=== PATIENT | female | born 1990 | race Caucasian/White ===

== ENCOUNTER → 2018-01-13 | Outpatient (REF) | payer OTHER ==
[2018-01-13 20:07] LABS: CHLAMYDIA DNA AMPLIFICATION NEGATIVE (NEGATIVE); GC DNA AMPLIFICATION NEGATIVE (NEGATIVE)
== END ==
LOC: M SFHCLERA 15:48
DX: N89.8 Other specified noninflammatory disorders of vagina (principal); R30.0 Dysuria

== ENCOUNTER 2018-02-11 11:58 | Emergency (ER) | payer OTHER ==
[~2018-02-11] VITALS: Ht 160 cm; Wt 77.3 kg
[2018-02-11] MEDS ORDERED: METO5TAB2 (12:04)
[2018-02-11] MEDS ORDERED: ONDANSETRON 4MG/2ML VIAL (J2405) IV ONE (12:30)
[2018-02-11] MEDS ORDERED: NS 1,000 ML IV ONE (12:30)
[2018-02-11] MEDS ORDERED: ZOFR4TAB14 PO (14:00)
[2018-02-11] MEDS ORDERED: MACR100C43 PO (14:05)
[2018-02-11 14:08] VITALS: BP 107/60
== END 2018-02-11 14:10 | disposition home or self-care (01) ==
LOC: M ED 11:58
DX: N39.0 Urinary tract infection, site not specified (principal); R11.2 Nausea with vomiting, unspecified
CPT/HCPCS: 81001; 87086; 96361; 96374; 99284; J2405

== ENCOUNTER → 2018-03-04 | Outpatient (CLI) | payer OTHER ==
[~2018-03-04] MED LIST: MACR100C43 PO; METO5TAB2; PHEN1SUP10; PROM25TA12 PO; ZOFR4TAB14 PO
[2018-03-04 18:25] LABS: BASO % 0.3 % (0.0-1.0); EOS # 0.1 10^3/uL (0.0-0.50); EOS % 0.9 % (0.0-3.0); HEMATOCRIT 40.3 % (36.0-47.0); HEMOGLOBIN 12.5 g/dl (12.0-15.5); LYMPH # 2.1 10^3/uL (1.5-6.5); LYMPH % 26.3 % (24.0-44.0); MEAN CORPUSCULAR HEMOGLOBIN 25.7 pg (27.0-33.0); MEAN CORPUSCULAR VOLUME 82.9 fl (80.0-96.0); MONO # 0.6 10^3/uL (0.0-0.8); MONO % 7.1 % (0.0-5.0); NEUTROPHILS # 5.2 10^3/uL (1.8-7.7); NEUTROPHILS % 65.1 % (36.0-66.0); PLATELET COUNT, AUTOMATED 262 10^3/uL (150-450); RED BLOOD COUNT 4.86 10^6/uL (4.00-5.40); WHITE BLOOD COUNT 7.9 10^3/uL (4.0-10.0)
[2018-03-04 20:04] LABS: CHLAMYDIA DNA AMPLIFICATION NEGATIVE (NEGATIVE); GC DNA AMPLIFICATION NEGATIVE (NEGATIVE)
[2018-03-06 11:17] LABS: HEPATITIS C VIRUS ABY INDEX 0.1 INDEX (<0.8); HIV 1&2 SCREEN CENTAUR NEGATIVE (NEGATIVE); RUBELLA IgG QUALITATIVE IMMUNE (IMMUNE)
== END ==
LOC: M SMT 14:05
PROVIDERS: ATTEND Advanced Practice Midwife
DX: Z34.80 Encounter for supervision of other normal pregnancy, unspecified trimester (principal); Z3A.10 10 weeks gestation of pregnancy

== ENCOUNTER 2018-03-07 15:55 | Emergency (ER) | payer OTHER ==
[~2018-03-07] VITALS: Ht 162.6 cm; Wt 73.0 kg
[~2018-03-07 15:55] MED LIST changes: -PHEN1SUP10; -PROM25TA12 PO
[2018-03-07] MEDS ORDERED: PHEN1SUP10 (16:01)
[2018-03-07 16:54] LABS: BLOOD UREA NITROGEN 5 MG/DL (7-18); CALCIUM LEVEL 9.1 MG/DL (8.5-10.1); CARBON DIOXIDE LEVEL 22 MEQ/L (21-32); CHLORIDE LEVEL 103 MEQ/L (98-107); CREATININE FOR GFR 0.55 MG/DL (0.55-1.30); GLOMERULAR FILTRATION RATE > 60.0 (>60); GLUCOSE, FASTING 74 MG/DL (70-100); POTASSIUM SERUM 3.9 MEQ/L (3.5-5.1); SODIUM LEVEL 134 MEQ/L (136-145)
[2018-03-07 16:56] LABS: BASO % 0.1 % (0.0-1.0); EOS % 0.5 % (0.0-3.0); HEMATOCRIT 40.3 % (36.0-47.0); HEMOGLOBIN 13.1 g/dl (12.0-15.5); LYMPH # 1.6 10^3/uL (1.5-6.5); LYMPH % 21.5 % (24.0-44.0); MEAN CORPUSCULAR HEMOGLOBIN 26.6 pg (27.0-33.0); MEAN CORPUSCULAR HGB CONC 32.5 g/dl (32.0-36.5); MEAN CORPUSCULAR VOLUME 81.7 fl (80.0-96.0); MONO # 0.4 10^3/uL (0.0-0.8); MONO % 5.7 % (0.0-5.0); NEUTROPHILS # 5.3 10^3/uL (1.8-7.7); NEUTROPHILS % 71.8 % (36.0-66.0); PLATELET COUNT, AUTOMATED 249 10^3/uL (150-450); RED BLOOD COUNT 4.93 10^6/uL (4.00-5.40); WHITE BLOOD COUNT 7.4 10^3/uL (4.0-10.0)
[2018-03-07] MEDS ORDERED: PROMETHAZINE 25 MG TAB PO ONE (17:00)
[2018-03-07] MEDS ORDERED: NS 1,000 ML IV ONE (17:45)
[2018-03-07] MEDS ORDERED: METOCLOPRAMIDE INJ 10MG/2ML VIAL (J2765) IV ONE (18:30)
[2018-03-07] MEDS ORDERED: ONDANSETRON 4MG/2ML VIAL (J2405) IV ONE (19:15)
[2018-03-07 20:10] VITALS: BP 120/72
[2018-03-07] MEDS ORDERED: PROM25TA12 PO (20:16)
== END 2018-03-07 20:19 | disposition home or self-care (01) ==
LOC: M ED 15:55
DX: R11.2 Nausea with vomiting, unspecified (principal); Z79.899 Other long term (current) drug therapy
CPT/HCPCS: 80048; 81001; 85025; 87086; 96374; 96375; 99284; J2405; J2765

== ENCOUNTER → 2018-04-03 | Outpatient (CLI) | payer OTHER ==
[~2018-04-03] MED LIST changes: +PHEN1SUP10; +PROM25TA12 PO
== END ==
LOC: M SMT 13:42
PROVIDERS: ATTEND Advanced Practice Midwife
DX: Z34.82 Encounter for supervision of other normal pregnancy, second trimester (principal); Z36.8A Encounter for antenatal screening for other genetic defects

== ENCOUNTER → 2018-05-06 | Outpatient (CLI) | payer OTHER ==
--- NOTE | 2018-05-07 05:33 | REP ---
Clinical: Anatomical evaluation. Comparison: None . Findings: Examination demonstrates a single live intrauterine in cephalic presentation. motion is identified by technologist. Placenta is noted anterior and grade grade zero without evidence for placenta previa or abruption. Amniotic fluid volume is normal. Cervix measures 4.1 cm in length and appears closed. No evidence for nuchal cord. Gestational age by LMP 18 weeks 1 day with SMOOTH 10/06/2018 . Gestational age by current measurements 19 weeks 3 days with SMOOTH 09/27/2018 . FHR equals 150 beats per minute. BPD 4.8 cm 20 weeks 4 days HC 16.5 cm 19 weeks 2 days AC 13.2 cm 18 weeks 5 days FL 2.9 cm 18 weeks 6 days HL 2.9 cm 19 weeks 3 days HC/AC ratio 1.25 Estimated weight 263 grams ( 79th percentile). Anatomical assessment demonstrates normal structures including cranium, choroid plexus, cavum, cerebellum/posterior fossa, facial features, lungs, diaphragm, stomach, cord insertion/three-vessel cord, kidneys/bladder, spine, and extremities. Limited evaluation of the heart and ventricular outflow tracts noted. Too small echogenic foci within the left cardiac ventral cannot be excluded. Impression: 1. Single live intrauterine in cephalic presentation demonstrating appropriate interval growth. 2. Incomplete evaluation of the heart and ventricular outflow tracts warrant reevaluation. Electronically Signed by Michael Fair MD 05/07/2018 05:25 A
== END ==
LOC: M RAD 13:36
PROVIDERS: ATTEND Advanced Practice Midwife
DX: Z34.82 Encounter for supervision of other normal pregnancy, second trimester (principal); Z3A.19 19 weeks gestation of pregnancy

== ENCOUNTER → 2018-05-27 | Outpatient (CLI) | payer OTHER ==
--- NOTE | 2018-05-28 11:03 | REP ---
Clinical: Anatomical evaluation. Comparison: 05/06/2018 . Findings: Examination demonstrates a single live intrauterine in cephalic presentation. motion is identified by technologist. Placenta is noted posterior and grade there are grade zero without evidence for placenta previa or abruption. Amniotic fluid volume is normal. Cervix measures 5.1 cm in length and appears closed. No evidence for nuchal cord. Gestational age by LMP 21 weeks 1 day with SMOOTH 10/06/2018 . Gestational age by current measurements 22 weeks 4 days with SMOOTH 09/26/2018 . FHR equals 136 beats per minute. Estimated weight 501 grams ( 94th percentile based on age by LMP ). Anatomical assessment demonstrates echogenic foci within the left cardiac ventricle consistent with prominent chordae tendineae along with normal right and left cardiac ventricular outflow tracts. Impression: 1. Single live intrauterine in cephalic presentation demonstrating appropriate interval growth. 2. Echogenic foci within the left cardiac ventricle likely prominent chordae tendineae. Remainder of the anatomical assessment is complete and normal. Electronically Signed by Michael Fair MD 05/28/2018 10:55 A
== END ==
LOC: M RAD 13:31
PROVIDERS: ATTEND Advanced Practice Midwife
DX: Z34.82 Encounter for supervision of other normal pregnancy, second trimester (principal); Z3A.21 21 weeks gestation of pregnancy

== ENCOUNTER → 2018-07-01 | Outpatient (CLI) | payer OTHER ==
[2018-07-01 18:00] LABS: HEMATOCRIT 35.8 % (36.0-47.0); HEMOGLOBIN 11.1 g/dl (12.0-15.5); MEAN CORPUSCULAR VOLUME 87.1 fl (80.0-96.0); PLATELET COUNT, AUTOMATED 279 10^3/uL (150-450); RED BLOOD COUNT 4.11 10^6/uL (4.00-5.40); WHITE BLOOD COUNT 10.1 10^3/uL (4.0-10.0)
== END ==
LOC: M SMT 13:45
PROVIDERS: ATTEND Advanced Practice Midwife
DX: Z34.82 Encounter for supervision of other normal pregnancy, second trimester (principal); Z3A.00 Weeks of gestation of pregnancy not specified

== ENCOUNTER → 2018-07-03 | Outpatient (CLI) | payer OTHER | LOC: M LAB 06:57 | PROVIDERS: ATTEND Advanced Practice Midwife | DX: Z53.9 Procedure and treatment not carried out, unspecified reason (principal) ==

== ENCOUNTER → 2018-07-04 | Outpatient (CLI) | payer OTHER | LOC: M LAB 06:49 | PROVIDERS: ATTEND Advanced Practice Midwife | DX: Z36.89 Encounter for other specified antenatal screening (principal) ==

== ENCOUNTER → 2018-09-03 | Outpatient (REF) | payer OTHER | LOC: M LAB REF 16:59 | PROVIDERS: ATTEND Advanced Practice Midwife | DX: Z34.83 Encounter for supervision of other normal pregnancy, third trimester (principal) ==

== ENCOUNTER → 2018-09-09 | Outpatient (CLI) | payer OTHER | LOC: M SMT 15:14 | PROVIDERS: ATTEND Advanced Practice Midwife | DX: Z36.89 Encounter for other specified antenatal screening (principal) ==

== ENCOUNTER 2018-09-27 09:21 | Inpatient (IN) | payer OTHER ==
[~2018-09-27] VITALS: Ht 162.6 cm; Wt 93.8 kg
[2018-09-27] VITALS (12 sets, daily range): BP systolic 102–130; BP diastolic 59–81
[2018-09-27] MEDS ORDERED: LACTATED RINGER'S 1000 ML IV STA (10:19)
--- NOTE | 2018-09-27 10:33 | HPEPDOC ---
Obstetrical History & Physical General Date of Admission Sep 27, 2018 at 09:21 History of Present Illness Chief Complaint: Induction of labor Information Provided By: Patient Age: 28 : 2 Term: 1 Pre-term: 0 Abortions: 0 Livin Care Care: Good Care Dating Final EDC: Sep 26, 2018 Final EDC by: LMP EGA at Admission: 40 (+1) Antepartum Course Height (inches): 63 Pre- weight (lbs.): 173 Admission Weight (lbs.): 207 Past Medical History Past Obstetrical History : Past Obstetrical History: Primgravida (2011) Type of Delivery: Spontaneous Vaginal Del. 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 BREAST: . ABDOMEN: Gravid and non-tender to touch. FETUS: Is vertex (VTX) by sterile vaginal examination (SVE), fetus is vertex (VTX) by Sam. HEART RATE: Regular rate and rhythm. LUNGS: Clear to auscultation (CTA). EXTREMITIES: No edema. No clonus. Deep tendon reflexes (DTRs) + 2 Vital Signs/I&O Vital Signs Date Time Temp Pulse Resp B/P (MAP) Pulse Ox O2 Delivery O2 Flow Rate FiO2 09/27/18 09:45 97.4 98 18 107/67 (80) Laboratory Data [facility] Laboratory Tests 2 09/27/18 09:39: Serology Scanned Report Hepatitis B Testing Pertinent Laboratoy Data Blood Type: O+ RBC Antibody Screen: Negative HIV: Negative Hepatitis B: Negative Hepatitis C: Negative Rapid Plasma Reagin: Nonreactive Rubella: Immune Chlamydia/Gonorrhea: Negative Group B Streptococcus: Negative Quad Screen Test: Negative (panorama, low risk male) Glucose Tolerance Test: 173 (3hr 74, 156, 139, 115) Anatomy Ultrasound Ultrasound Date: May 06, 2018 Placenta Location: Anterior Normal Anatomy: Yes Placenta Previa: No Estimated Weight (grams): 263 (79%) Other Ultrasounds 03/04/18 dating 10w5d 05/27/18 f/u remainder anatomy, echogenic foci, EFW 501g, 94% 09/03/18 Vertex Steroid Therapy Steroid Therapy: No Vaginal Examination Dilation: 1cm Effacement: 50% Station: -3 Cervical Consistency: Medium Cervical Position: Posterior Presentation: Cephalic presentation Assessment Heart Rate (FHR): 135 Variability: Moderate Accelerations: Positive Decelerations: None Tocometer Contractions: Yes Frequency: irregular Strength: palpated as mild Assessment/Plan Assessment Kristina is a 28-year-old (G)2 para (P)1-0-0-1 at 40+1 weeks by 10-week ultrasound. Presents to Labor and Delivery (L&D) elective induction of labor at term. Denies LOF or bleeding. Fetus is active. 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 Diet: regular. Group B Streptococcus (GBS) negative. Labs and intravenous (IV) per unit protocol. Counseled on misoprostol, Pitocin and induction of labor (IOL). Lactated Ringers (LR): Bolus 500 mL, then saline lock. Plans epidural Anticipate normal spontaneous delivery (). C-S as appropriate. Ignacia Anderson CNM Sep 27, 2018 10:33
[2018-09-27 10:54] LABS: HEMATOCRIT 32.8 % (36.0-47.0); HEMOGLOBIN 10.3 g/dl (12.0-15.5); MEAN CORPUSCULAR HEMOGLOBIN 24.8 pg (27.0-33.0); MEAN CORPUSCULAR HGB CONC 31.4 g/dl (32.0-36.5); PLATELET COUNT, AUTOMATED 251 10^3/uL (150-450); RED BLOOD COUNT 4.15 10^6/uL (4.00-5.40)
[2018-09-27] MEDS: miSOPROStol 50 MCG 1/2 TAB (S0191) PO SCH ×2 (11:02→15:11)
[2018-09-27] MEDS ORDERED: BUTORPHANOL 2 MG/ML INJ (J0595) IV ONE (20:00)
[2018-09-27] MEDS ORDERED: PROMETHAZINE INJ 25 MG/ML VIAL (J2550) IV ONE (20:00)
[2018-09-28] VITALS (20 sets, daily range): BP systolic 112–142; BP diastolic 57–95
[2018-09-28] MEDS ORDERED: OXYTOCIN 30 UNITS IN 0.9% NaCl 500ML IV BAG (J2590) As Ordered ONE (00:16)
[2018-09-28] MEDS ORDERED: LR 1,000 ML IV SCH (00:31)
--- NOTE | 2018-09-28 00:33 | IPNPDOC ---
Text Note Date of Service The patient was seen on 09/28/18. NOTE primarily Cat I tracing with intermittent Cat II episodes Irregular UC Becoming more uncomfortable SVE 50/-3, softer Cooks catheter placed, inflated with 60/40ml NS Start pitocin augmentation Pt considering epidural soon VS,Fishbone, I+O VS, Fishbone, I+O Laboratory Tests 09/27/18 10:43 Red Blood Count 4.15, Mean Corpuscular Volume 79.0 L, Mean Corpuscular Hemoglobin 24.8 L, Mean Corpuscular Hemoglobin Concent 31.4 L, Red Cell Distribution Width 14.3 Vital Signs Date Time Temp Pulse Resp B/P (MAP) Pulse Ox O2 Delivery O2 Flow Rate FiO2 09/27/18 16:32 85 18 113/66 (82) 09/27/18 16:18 97.8 Ignacia Anderson CNM Sep 28, 2018 00:33
[2018-09-28] MEDS ORDERED: OXYTOCIN DRIP 30 UNITS in APPROPRIATE DILUENT 1 EA IV SCH (00:45)
[2018-09-28] MEDS ORDERED: FENTANYL 2MCG/ML ROPIVACAINE 0.2% IN 0.9% NACL 100ML IVBAG As Ordered ONE (01:07)
[2018-09-28] MEDS ORDERED: REFRIGERATOR IV KEYS XX PRN (03:00)
[2018-09-28] MEDS ORDERED: FENTANYL/ROPIVACAINE/NACL BAG 100 ML EPIDURAL SCH (03:00)
[2018-09-28] MEDS ORDERED: ePHEDrine SULFATE 25 MG/5 ML(5MG/ML) SYRINGE IV PRN (03:00)
[2018-09-28] MEDS ORDERED: EPIDURAL/PCA KEYS XX PRN (03:00)
[2018-09-28] MEDS ORDERED: NALOXONE INJ 0.4 MG/1 ML VIAL (J2310) IV PRN (03:00)
[2018-09-28] MEDS ORDERED: EPIDURAL COMMENT XX SCH (03:00)
[2018-09-28] MEDS ORDERED: LACTATED RINGER'S 1000 ML IV PRN (03:00)
[2018-09-28] MEDS ORDERED: ONDANSETRON 4MG/2ML VIAL (J2405) IV PRN (03:00)
[2018-09-28] MEDS ORDERED: diphenhydrAMINE INJ 50MG/ML VIAL (J1200) IV PRN (03:00)
[2018-09-28] MEDS: miSOPROStol 50 MCG 1/2 TAB (S0191) PO SCH (03:40)
--- NOTE | 2018-09-28 04:06 | IPNPDOC ---
Text Note Date of Service The patient was seen on 09/28/18. NOTE Pitocin has been off x 1 hour for Cat II tracing with late decelerations Pt is reporting pressure. Cooks catheter in vagina, removed SVE / Observe. Consider restarting pitocin or AROM VS,Fishbone, I+O VS, Fishbone, I+O Laboratory Tests 09/27/18 10:43 Red Blood Count 4.15, Mean Corpuscular Volume 79.0 L, Mean Corpuscular Hem oglobin 24.8 L, Mean Corpuscular Hemoglobin Concent 31.4 L, Red Cell Distribution Width 14.3 Vital Signs Date Time Temp Pulse Resp B/P (MAP) Pulse Ox O2 Delivery O2 Flow Rate FiO2 09/27/18 16:32 85 18 113/66 (82) 09/27/18 16:18 97.8 Ignacia Anderson CNM Sep 28, 2018 04:06
[2018-09-28 05:24] LABS: CORD GAS ABE A -8.5; CORD GAS ABE V -4.3; CORD GAS HCO3 A 21.3 MEQ/L; CORD GAS HCO3 V 21.9 MEQ/L; CORD GAS O2 SAT A 75.7 %; CORD GAS PCO2 A 60.6 mmHg; CORD GAS PCO2 V 44.2 mmHg; CORD GAS PH A 7.164 UNITS; CORD GAS PH V 7.313 UNITS; CORD GAS PO2 A 42.3 mmHg; CORD GAS PO2 V 37.5 mmHg; CORD GAS SBC A 17.3 MEQ/L; CORD GAS SBC V 20.4 MEQ/L; CORD GAS TCO2 A 23.2 MEQ/L; CORD GAS TCO2 V 23.3 MEQ/L
--- NOTE | 2018-09-28 05:43 | DNPDOC ---
[facility] Delivery Note Delivery Note DATE OF DELIVERY: 09/28/18 PREDELIVERY DIAGNOSIS: 40+2/7 weeks' gestation and labor. POST DELIVERY DIAGNOSIS: Delivered. PROCEDURE: Spontaneous vaginal delivery. PROVIDER: Ignacia Anderson CNM ANESTHESIA: Epidural. ESTIMATED BLOOD LOSS: 150 mL. FINDINGS: 8 pound 4 ounce, 3750gm male , Score 8/9, nuchal cord times 1. DELIVERY SUMMARY: Patient is a 28-year-old 2 now para 2-0-0-2 who was admitted to labor and delivery for elective induction of labor. She received misoprostol, pitocin and Cooks cervical catheter. She utilized an epidural for labor coping. AROM 0417. FD 0420. Viable male delivered COREY through nuchal cord @ 0437. Spontaneous respirations with stimulation. Transitioned on maternal abdomen. Large amount terminal meconium noted. Cord doubly clamped and cut once pulsations ceased. Cord gases arterial 7.164 with BE - 8.5 and venous 7.313 with BE -4.3. Placenta herring, intact with 3v cord @ 0446. Fundus firmed with massage and IV pitocin bolus. EBL 150ml. Cervix, vagina and perineum inspected, small first degree outlet laceration repaired with one stitch 3-0 vicryl rapide. Sponge sharp and instrument count correct. Parents are naming their son Ignacia Anderson CNM Sep 28, 2018 05:43
[2018-09-28] MEDS ORDERED: MOM 30ML SUSPENSION UDC PO PRN (05:45)
[2018-09-28] MEDS ORDERED: ANUSOL HC CREAM 30GM TOP PRN (05:45)
[2018-09-28] MEDS ORDERED: IBUPROFEN 600 MG TAB PO PRN (05:45)
[2018-09-28] MEDS ORDERED: ACETAMINOPHEN TAB 650MG DOSE (2X325MG) PO PRN (05:45)
[2018-09-28] MEDS ORDERED: DOCUSATE SODIUM 100 MG CAP PO PRN (05:45)
[2018-09-28] MEDS ORDERED: RHOGAM 300 MCG (1500 IU) INJ (J2790) IM SCH (05:45)
[2018-09-28] MEDS ORDERED: DIBUCAINE 1% OINTMENT 30GM TOP PRN (05:45)
[2018-09-28] MEDS ORDERED: METHYLERGONOVINE MALEATE 0.2 MG TAB PO PRN (05:45)
[2018-09-28] MEDS ORDERED: MEASLES,MUMPS,RUBELLA VACCINE INJ (MMR-II) (90707) SC SCH (05:45)
[2018-09-28] MEDS ORDERED: IBUPROFEN 800 MG TAB PO PRN (05:45)
[2018-09-28] MEDS: ACETAMINOPHEN 500 MG TAB PO PRN ×2 (08:48→21:14)
[2018-09-28] MEDS: PRENATAL VITAMINS CHEWABLE TABLET PO SCH (10:08)
[2018-09-29 06:10] VITALS: BP 117/70
[2018-09-29] MEDS: PRENATAL VITAMINS CHEWABLE TABLET PO SCH (07:57)
== END 2018-09-29 18:15 | disposition home or self-care (01) | DRG 807 ==
LOC: M LDI 09:21 → M OBS 09-28 07:05
PROVIDERS: ADMIT Advanced Practice Midwife; ATTEND Advanced Practice Midwife
PROC: 3E0P7GC Introduction of Other Therapeutic Substance into Female Reproductive, Via Natural or Artificial Opening (ICD-10-PCS; 2018-09-27)
PROC: 10E0XZZ Delivery of Products of Conception, External Approach (ICD-10-PCS; principal; 2018-09-28)
PROC: 10907ZC Drainage of Amniotic Fluid, Therapeutic from Products of Conception, Via Natural or Artificial Opening (ICD-10-PCS; 2018-09-28)
PROC: 0HQ9XZZ Repair Perineum Skin, External Approach (ICD-10-PCS; 2018-09-28)
DX: O48.0 Post-term pregnancy (principal); Z37.0 Single live birth; Z3A.40 40 weeks gestation of pregnancy; O69.81X0 Labor and delivery complicated by cord around neck, without compression, not applicable or unspecified; O77.0 Labor and delivery complicated by meconium in amniotic fluid; O70.0 First degree perineal laceration during delivery

== ENCOUNTER → 2018-11-25 | Outpatient (CLI) | payer OTHER | LOC: M SMT 14:21 | PROVIDERS: ATTEND Advanced Practice Midwife | DX: Z13.79 Encounter for other screening for genetic and chromosomal anomalies (principal) ==

== ENCOUNTER 2019-08-12 17:30 | Emergency (ER) | payer OTHER ==
[~2019-08-12] VITALS: Ht 162.6 cm; Wt 83.1 kg
[2019-08-12 19:18] LABS: BASO % 0.1 % (0.0-1.0); EOS # 0.1 10^3/uL (0.0-0.5); EOS % 1.7 % (0.0-3.0); HEMATOCRIT 41.3 % (36.0-47.0); HEMOGLOBIN 12.7 g/dl (12.0-15.5); LYMPH # 2.7 10^3/uL (1.5-5.0); LYMPH % 31.9 % (24.0-44.0); MEAN CORPUSCULAR HEMOGLOBIN 25.4 pg (27.0-33.0); MEAN CORPUSCULAR HGB CONC 30.8 g/dl (32.0-36.5); MEAN CORPUSCULAR VOLUME 82.6 fl (80.0-96.0); MONO # 0.5 10^3/uL (0.0-0.8); MONO % 5.8 % (0.0-5.0); NEUTROPHILS # 5.1 10^3/uL (1.5-8.5); NEUTROPHILS % 60.3 % (36.0-66.0); PLATELET COUNT, AUTOMATED 294 10^3/uL (150-450); WHITE BLOOD COUNT 8.4 10^3/uL (4.0-10.0)
--- NOTE | 2019-08-12 19:39 | REPVR ---
PROCEDURE INFORMATION: Exam: CT Head Without Contrast Exam date and time: 08/12/2019 7:27 PM Age: 29 years old Clinical indication: Pain; Headache; Additional info: Altered mental status TECHNIQUE: Imaging protocol: Computed tomography of the head without contrast. Radiation optimization: All CT scans at this facility use at least one of these dose optimization techniques: automated exposure control; mA and/or kV adjustment per patient size (includes targeted exams where dose is matched to clinical indication); or iterative reconstruction. COMPARISON: No relevant prior studies available. FINDINGS: Brain: There is no evidence of infarct, rojas-white matter differentiation is preserved. There is no hemorrhage or extra-axial collection. There is no mass. No evidence of subarachnoid hemorrhage. No cerebral edema. Ventricles: There is no hydrocephalus. Bones/joints: Unremarkable. No acute fracture. Sinuses: Visualized sinuses are unremarkable. No fluid levels. Mastoid air cells: Visualized mastoid air cells are well aerated. Soft tissues: Unremarkable. IMPRESSION: No intracranial lesion or injury. Electronically signed by: Michael Eldridge On 08/12/2019 19:39:53 PM
[2019-08-12 20:04] LABS: ACETAMINOPHEN LEVEL < 2.0 UG/ML (10.0-30.0); ALBUMIN 3.8 GM/DL (3.2-5.2); ALT/SGPT 18 U/L (12-78); BILIRUBIN,DIRECT < 0.1 MG/DL (0.0-0.2); BILIRUBIN,TOTAL 0.2 MG/DL (0.2-1.0); BLOOD UREA NITROGEN 10 MG/DL (7-18); CALCIUM LEVEL 9.2 MG/DL (8.5-10.1); CARBON DIOXIDE LEVEL 26 MEQ/L (21-32); CHLORIDE LEVEL 106 MEQ/L (98-107); CK-MB VALUE MASS < 1.0 NG/ML (<3.6); CPK CREATINE PHOSPHOKINASE 60 U/L (26-192); CREATININE FOR GFR 0.63 MG/DL (0.55-1.30); ETHYL ALCOHOL (ETHANOL) 0.003 % (0.000-0.010); GLOMERULAR FILTRATION RATE > 60.0 (>60); GLUCOSE, FASTING 83 MG/DL (70-100); MB/CK RELATIVE INDEX 1.67 (< OR =4); POTASSIUM SERUM 4.4 MEQ/L (3.5-5.1); SALICYLATE LEVEL < 1.7 MG/DL (5.0-30.0); SODIUM LEVEL 139 MEQ/L (136-145); TOTAL PROTEIN 7.7 GM/DL (6.4-8.2); TROPONIN I < 0.02 NG/ML (< 0.10)
[2019-08-12 20:30] VITALS: BP 134/89
--- NOTE | 2019-08-13 09:50 | ECGEPIP ---
[facility] - ED Test Date: 2019-08-12 Pat Name: ANGELICA SAUCEDA Department: Room: - Gender: Female Junior Marketing Associate: frances : 1990 Requested By: QAMAR VALE Order Number: [id number] Reading MD: Ck Dawn Measurements Intervals Orwell Rate: 89 P: 52 CO: 144 QRS: -4 QRSD: 97 T: 5 QT: 370 QTc: 451 Interpretive Statements SINUS RHYTHM NONSPECIFIC T WAVE ABNORMALITIES NO PRIORS FOR COMPARISON Electronically Signed on 08-13-2019 9:50:05 EDT by Ck Dawn
== END 2019-08-12 20:38 | disposition home or self-care (01) ==
LOC: M ED 17:30
DX: R20.8 Other disturbances of skin sensation (principal); M79.605 Pain in left leg; M79.604 Pain in right leg
CPT/HCPCS: 36415; 70450; 80048; 80076; 82550; 82553; 84443; 84484; 84702; 85025; 93005; 93041; 94760; 99284; G0480

== ENCOUNTER → 2020-02-26 | Outpatient (REF) | payer OTHER | LOC: M LAB REF 17:17 | PROVIDERS: ATTEND Family Medicine | DX: R30.0 Dysuria (principal) ==

== ENCOUNTER → 2020-04-06 | Outpatient (REF) | payer OTHER | LOC: M LAB REF 15:26 | PROVIDERS: ATTEND Nurse Practitioner Family | DX: R35.0 Frequency of micturition (principal) ==

== ENCOUNTER → 2020-04-19 | Outpatient (REF) | payer OTHER ==
[2020-04-20 10:23] LABS: APPEARANCE, URINE MANUAL CLOUDY (CLEAR); COLOR, URINE MANUAL ORANGE (YELLOW)
[2020-04-20 10:24] LABS: SPECIFIC GRAVITY,URINE MANUAL 1.011 (1.002-1.035)
[2020-04-20 10:25] LABS: BILIRUBIN, URINE MANUAL OBSCURED (NEGATIVE); BLOOD URINE MANUAL NEGATIVE (NEGATIVE); GLUCOSE, URINE (UA) MANUAL NEGATIVE (NEGATIVE); KETONE, URINE MANUAL NEGATIVE (NEGATIVE); LEUKOCYTE ESTERASE, URINE MAN NEGATIVE (NEGATIVE); NITRITE, URINE MANUAL OBSCURED (NEGATIVE); PROTEIN, URINE MANUAL OBSCURED mg/dL (NEGATIVE); UROBILINOGEN, URINE MANUAL OBSCURED mg/dl (NORMAL)
[2020-04-20 10:41] LABS: SQUAMOUS EPITHELIAL CELL URINE SMALL AMOUNT /hpf (SMALL AMT); WBC, URINE 0-1 /hpf (0-3)
[2020-04-20 10:42] LABS: AMORPHOUS SEDIMENT, URINE MOD AMOUNT (NEGATIVE)
== END ==
LOC: M LAB REF 09:56
PROVIDERS: ATTEND Nurse Practitioner Family
DX: R30.0 Dysuria (principal); N76.0 Acute vaginitis

== ENCOUNTER → 2020-05-18 | Outpatient (REF) | payer OTHER ==
[2020-05-18 14:14] LABS: SPECIFIC GRAVITY,URINE MANUAL 1.024 (1.002-1.035)
[2020-05-18 14:16] LABS: APPEARANCE, URINE MANUAL HAZY (CLEAR); COLOR, URINE MANUAL ORANGE (YELLOW); KETONE, URINE MANUAL OBSCURED mg/dL (NEGATIVE); PROTEIN, URINE MANUAL OBSCURED mg/dL (NEGATIVE)
[2020-05-18 14:17] LABS: BILIRUBIN, URINE MANUAL OBSCURED (NEGATIVE); BLOOD URINE MANUAL OBSCURED (NEGATIVE); GLUCOSE, URINE (UA) MANUAL OBSCURED mg/dL (NEGATIVE); LEUKOCYTE ESTERASE, URINE MAN OBSCURED (NEGATIVE); NITRITE, URINE MANUAL OBSCURED (NEGATIVE); UROBILINOGEN, URINE MANUAL OBSCURED mg/dl (NORMAL)
[2020-05-18 14:19] LABS: AMORPHOUS SEDIMENT, URINE LARGE AMOUNT (NEGATIVE); BACTERIA, URINE NONE SEEN; HYALINE CAST, URINE NONE SEEN /lpf (0-1); RBC, URINE NONE SEEN /hpf (0-3); SQUAMOUS EPITHELIAL CELL URINE SMALL AMOUNT /hpf (SMALL AMT); WBC, URINE NONE SEEN /hpf (0-3)
== END ==
LOC: M SMT 13:25
PROVIDERS: ATTEND Nurse Practitioner Family
DX: R30.0 Dysuria (principal)

== ENCOUNTER → 2020-06-23 | Outpatient (REF) | payer OTHER | LOC: M SMT 17:08 | PROVIDERS: ATTEND Specialist | DX: R30.0 Dysuria (principal) | CPT/HCPCS: 52000; 87109; G0463 ==